=== PATIENT | female | born 1985 | race Caucasian/White ===

== ENCOUNTER 2016-07-16 21:21 | Emergency (ER) | payer MEDICARE, MEDICAID | END 2016-07-16 23:17 | disposition home or self-care (01) | LOC: D.ER 21:21 | DX: S63.501A Unspecified sprain of right wrist, initial encounter (principal); X58.XXXA Exposure to other specified factors, initial encounter; Y93.83 Activity, rough housing and horseplay; Y92.019 Unspecified place in single-family (private) house as the place of occurrence of the external cause; F17.200 Nicotine dependence, unspecified, uncomplicated; F41.9 Anxiety disorder, unspecified; F32.9 Major depressive disorder, single episode, unspecified ==

== ENCOUNTER 2019-04-28 10:04 | Emergency (ER) | payer OTHER, MEDICAID ==
[~2019-04-28] VITALS: Ht 149.9 cm; Wt 86.4 kg
[2019-04-28 10:10] VITALS: BP 124/78; Ht 149.9 cm; Wt 86.4 kg
[2019-04-28] MEDS ORDERED: ZOFRAN8 MG PO (11:50)
== END 2019-04-28 13:15 | disposition home or self-care (01) ==
LOC: D.ER 10:04
DX: S06.0X9A Concussion with loss of consciousness of unspecified duration, initial encounter (principal); Y09 Assault by unspecified means